=== PATIENT | female | born 1995 | race Caucasian/White ===

== ENCOUNTER 2025-07-19 10:16 | Emergency (ER) | payer OTHER ==
[~2025-07-19] VITALS: Ht 154.9 cm; Wt 77.7 kg
[2025-07-19] MEDS ORDERED: SERTRALINE HCL25 MG PO (10:51)
[2025-07-19 10:59] LABS: BASOPHILS 0.7 % (0.1-1.2); EOSINOPHILS 1.3 % (0.7-5.8); LYMPHOCYTES 35.4 % (19.3-51.7); MCH 30.1 PG (25.6-32.2); MCHC 35.6 g/dL (32.2-35.5); MCV 84.7 fL (79.4-94.8); MONOCYTES 7.3 % (4.7-12.5); NEUTROPHILS 55.2 % (34.0-71.1); RBC 4.71 M/uL (3.93-5.22)
[2025-07-19] MEDS ORDERED: LORazepam 1 MG TAB PO ONE (11:15)
[2025-07-19] MEDS ORDERED: IBUPROFEN 600 MG TAB PO ONE (11:15)
[2025-07-19] MEDS ORDERED: ACETAMINOPHEN 500 MG TAB PO ONE (11:15)
[2025-07-19 11:20] LABS: ALT (SGPT) 37 U/L (14-59); AST (SGOT) 17 U/L (15-37); GLOMERULAR FILTRATION RATE,EST 113 mL/min (>60); PROTEIN, TOTAL 7.9 g/dL (6.4-8.2); UREA NITROGEN 6 mg/dL (7-18)
[2025-07-19] MEDS ORDERED: ATIVAN1 MG PO (13:10)
[2025-07-19 13:21] VITALS: BP 121/92
--- NOTE | 2025-07-20 10:42 | EKG ---
[facility] [address] [place], [place] [address] Signed Normal sinus rhythm Normal ECG No previous ECGs available Confirmed by JESSICA KHAN MD ([id number]) on 07/20/2025 10:42:24 AM Electronically Signed By: JESSICA KHAN 07/20/25 1042 PATIENT NAME: DARIAN GARY Electrocardiogram DATE OF : [birth year] PHYSICIAN: JESSICA KHAN REPORT #: [id number] REPORT IS CONFIDENTIAL AND NOT TO BE RELEASED WITHOUT AUTHORIZATION
== END 2025-07-19 13:20 | disposition home or self-care (01) ==
LOC: ED 10:16
PROVIDERS: Emergency Medicine
DX: M54.12 Radiculopathy, cervical region (principal); R73.03 Prediabetes; Z79.899 Other long term (current) drug therapy; Z88.0 Allergy status to penicillin
CPT/HCPCS: 36415; 71045; 80053; 83735; 84484; 85025; 85379; 93005; 93010; 99285-25; A9270; A9270-GY

== ENCOUNTER 2025-09-18 18:44 | Emergency (ER) | payer OTHER ==
[~2025-09-18] VITALS: Ht 154.9 cm; Wt 77.3 kg
[~2025-09-18 18:44] MED LIST: ATIVAN1 MG PO; SERTRALINE HCL25 MG PO
[2025-09-18 19:47] LABS: CORONAVIRUS COVID-19 AG NEGATIVE (NEGATIVE)
[2025-09-18 19:56] LABS: BASOPHILS 0.7 % (0.1-1.2); EOSINOPHILS 1.7 % (0.7-5.8); LYMPHOCYTES 56.0 % (19.3-51.7); MCH 29.6 PG (25.6-32.2); MCHC 35.2 g/dL (32.2-35.5); MCV 84.2 fL (79.4-94.8); MONOCYTES 9.7 % (4.7-12.5); NEUTROPHILS 31.9 % (34.0-71.1); RBC 4.69 M/uL (3.93-5.22)
[2025-09-18 20:12] LABS: ALT (SGPT) 43.0 U/L (14-59); AST (SGOT) 30.0 U/L (15-37); GLOMERULAR FILTRATION RATE,EST 123.0 mL/min (>60); PROTEIN, TOTAL 7.7 g/dL (6.4-8.2); UREA NITROGEN 2.0 mg/dL (7-18)
[2025-09-18] MEDS ORDERED: DOXYCYCLINE HYCLATE 100 MG HOME.PACK PO ONE (20:45)
[2025-09-18 20:50] VITALS: BP 125/96
== END 2025-09-18 20:50 | disposition home or self-care (01) ==
LOC: ED 18:44
PROVIDERS: Emergency Medicine; Family Medicine
DX: S00.86XA Insect bite (nonvenomous) of other part of head, initial encounter (principal); L08.9 Local infection of the skin and subcutaneous tissue, unspecified; M19.90 Unspecified osteoarthritis, unspecified site; Z88.0 Allergy status to penicillin; Z79.899 Other long term (current) drug therapy; W57.XXXA Bitten or stung by nonvenomous insect and other nonvenomous arthropods, initial encounter
CPT/HCPCS: 36415; 71045; 80053; 83735; 84443; 85025; 86140; 99283-25; A9270